=== PATIENT | male | born 1950 | race Hispanic/Latino ===

== ENCOUNTER 2023-03-07 07:32 | Observation (INO) | payer MEDICARE ==
[2023-03-04 08:43] LABS: BASOPHILS # (AUTO) 0.1 (0.0-0.1); BASOPHILS % 0.6 % (0.0-1.0); EOSINOPHILS # (AUTO) 0.3 (0.0-0.4); EOSINOPHILS % 3.4 % (0.0-6.0); HEMATOCRIT 42.1 % (38.2-49.6); LYMPHOCYTES # (AUTO) 1.6 (1.0-3.2); LYMPHOCYTES % 19.9 % (18.0-39.1); MEAN CORPUSCULAR HGB CONC 30.9 g/dL (31-35); MEAN CORPUSCULAR VOLUME 90.5 fL (81-99); MONOCYTES # (AUTO) 0.6 (0.2-0.8); MONOCYTES % 8.1 % (4.4-11.3); NEUTROPHILS # (AUTO) 5.4 (2.1-6.9); NEUTROPHILS % 67.7 % (38.7-80.0); PLATELET COUNT 250 x10e3/uL (140-360); RED BLOOD COUNT 4.65 x10e6/uL (4.3-5.7); RED CELL DISTRIBUTION WIDTH 13.5 % (11.7-14.4); WHITE BLOOD COUNT 7.92 x10e3/uL (4.8-10.8)
[2023-03-04 09:03] LABS: ANION GAP 11.8 mmol/L (8-16); CALCIUM 9.3 mg/dL (8.4-10.2); CREATININE, SERUM 1.05 mg/dL (0.72-1.25); POTASSIUM 3.8 mmol/L (3.5-5.1)
[~2023-03-07 07:32] MED LIST: ACETAMINOPHEN 1000 MG/100 ML 100 ML IV ONE; ASPIRIN81 MG PO; ATORVASTATIN CA20 MG PO; LISINOPRIL-HCT1 EAC2 PO
[2023-03-07] MEDS ORDERED: ROPIVACAINE 246.25 MG, EPINEPHRINE HCL 1:1000 1ML 0.5 MG, CLONIDINE HCL 0.08 MG, KETORO... INJ ONE ×5 (08:00)
[2023-03-07] MEDS ORDERED: GABAPENTIN 300 MG CAP ONE (08:05)
[2023-03-07] MEDS ORDERED: DEXAMETHASONE SOD PHOS 10 MG/1 ML VIAL ONE (08:05)
[2023-03-07] MEDS ORDERED: CELECOXIB 200 MG CAP ONE (08:05)
[2023-03-07] MEDS ORDERED: CEFAZOLIN SODIUM 2 GM ONE (08:05)
[2023-03-07] MEDS ORDERED: LACTATED RINGER'S 1,000 ML ONE (08:05)
[2023-03-07] MEDS ORDERED: SODIUM CHLORIDE 0.9% 500ML 500 ML ONE (08:48)
[2023-03-07] MEDS ORDERED: Vancomycin IV 1,000 MG ONE (08:48)
[2023-03-07] MEDS ORDERED: TRANEXAMIC ACID 20 ML ONE (08:49)
[2023-03-07] MEDS ORDERED: HYDROCODONE/APAP 5MG-325MG TAB PO PRN (10:45)
[2023-03-07] MEDS ORDERED: SODIUM CHLORIDE 0.9% 1000ML 1,000 ML IV SCH (10:45)
[2023-03-07] MEDS ORDERED: DIPHENHYDRAMINE HCL INJ 50 MG/ML VIAL IV PRN (10:45)
[2023-03-07] MEDS ORDERED: HYDROCODONE/APAP 7.5MG-325MG 1 EA TAB PO PRN (10:45)
[2023-03-07] MEDS ORDERED: ONDANSETRON HCL INJ 2MG/ML 2ML 2 MG/ML VIAL IV PRN (10:45)
[2023-03-07] MEDS ORDERED: DOCUSATE SODIUM 100 MG CAP PO PRN (10:45)
[2023-03-07] MEDS ORDERED: DEXAMETHASONE SOD PHOS INJ 4 MG/ML SDV ONE (11:47)
[2023-03-07] MEDS ORDERED: ONDANSETRON HCL INJ 2MG/ML 2ML 2 MG/ML VIAL ONE (11:47)
[2023-03-07] MEDS ORDERED: LIDOCAINE HCL 2% LOCAL INJ 5 ML SDV VIAL INJ ONE (11:47)
[2023-03-07] MEDS ORDERED: PHENYLEPHRINE HCL 1% 10 MG/ML VIAL ONE (11:47)
[2023-03-07] MEDS ORDERED: PROPOFOL IV EMULSION 10 MG/ML 20 ML VIAL ONE (11:47)
[2023-03-07] MEDS ORDERED: DEXMEDETOMIDINE HCL 200 MCG/2 ML VIAL ONE (11:47)
[2023-03-07] MEDS ORDERED: EPHEDRINE SULFATE INJ 50 MG/ML VIAL ONE (11:47)
[2023-03-07] MEDS ORDERED: SEVOFLURANE INHAL SOLN 250 ML PEN BTL ONE (11:47)
[2023-03-07] MEDS ORDERED: FENTANYL CITRATE/PF 100MCG/2 ML INJ ONE ×2 (12:06→13:27)
[2023-03-07 13:10] VITALS: BP 134/78; PULSE 72; RESP 19; O2SAT 97
[2023-03-07] MEDS ORDERED: EPINEPHRINE HCL 1:1000 1ML 1 MG/ML AMP ONE (13:19)
[2023-03-07] MEDS ORDERED: ROPIVACAINE 0.5% 5 MG/ML 30 ML SDV ONE (13:19)
[2023-03-07] MEDS ORDERED: MIDAZOLAM HCL 2 MG/2 ML VIAL ONE (13:27)
[2023-03-07] MEDS ORDERED: CELECOXIB 100 MG CAP PO SCH (17:00)
[2023-03-07] MEDS ORDERED: ASPIRIN 325 MG TAB PO SCH (17:00)
[2023-03-08] MEDS ORDERED: ACETAMINOPHEN 1000 MG/100 ML IV PRN (10:45)
== END 2023-03-07 13:27 | disposition home health service (06) ==
LOC: OR 07:32 → PACU V 10:45
PROVIDERS: ADMIT Specialist; ATTEND Specialist
DX: M17.11 Unilateral primary osteoarthritis, right knee (principal); I10 Essential (primary) hypertension; E78.5 Hyperlipidemia, unspecified; E66.9 Obesity, unspecified; Z68.36 Body mass index [BMI] 36.0-36.9, adult; Z71.82 Exercise counseling; F17.210 Nicotine dependence, cigarettes, uncomplicated; Z85.46 Personal history of malignant neoplasm of prostate; Z90.79 Acquired absence of other genital organ(s); Z01.810 Encounter for preprocedural cardiovascular examination; Z01.812 Encounter for preprocedural laboratory examination; Z01.818 Encounter for other preprocedural examination; Z79.899 Other long term (current) drug therapy; Z79.82 Long term (current) use of aspirin
CPT/HCPCS: 27447; 36415; 71046; 73560; 80048; 85025; 86850; 86900; 93005; 97110; 97116; 97161; C1713 ×3; C1776; G0378; J0131; J0171; J0690; J1100 ×2; J1885; J2001; J2250; J2371; J2405; J2704; J2795; J3010; J3370; J7040; J7121

== ENCOUNTER 2023-06-10 09:00 | Outpatient (RCR) | payer MEDICARE ==
[~2023-06-10 09:00] MED LIST changes: -ACETAMINOPHEN 1000 MG/100 ML 100 ML IV ONE
== END 2023-06-14 ==
LOC: PT 09:00
PROVIDERS: ATTEND Physician Assistant
DX: Z47.1 Aftercare following joint replacement surgery (principal); Z96.651 Presence of right artificial knee joint; M62.81 Muscle weakness (generalized); M25.561 Pain in right knee; M25.661 Stiffness of right knee, not elsewhere classified